=== PATIENT | female | born 1985 | race Caucasian/White ===

== ENCOUNTER 2016-08-21 21:20 | Inpatient (IN) | payer BC ==
[~2016-08-21] VITALS: Ht 162.6 cm; Wt 63.0 kg
[~2016-08-21 21:20] MED LIST: ADDERALL20 MG PO; LAC PO; MAC100 PO; XANAX0.5 MG PO
[2016-08-22 00:35] LABS: PLATELET COUNT 229 x10^3mcL (130-400); RED CELL DISTRIBUTION WIDTH 13.6 % (11.5-14.5)
[2016-08-22 00:36] LABS: BASOPHIL % 0 % (0-2)
[2016-08-22 00:57] LABS: CALCIUM 8.6 mg/dL (8.5-10.1); CARBON DIOXIDE 26.1 mmol/L (21-32); CREATININE SERUM 1.2 mg/dL (0.6-1.0); POTASSIUM SERUM 4.3 mmol/L (3.5-5.1)
[2016-08-22 01:01] LABS: ALBUMIN 3.6 g/dL (3.4-5.0); BILIRUBIN TOTAL 1.3 mg/dL (0.20-1.00); TOTAL PROTEIN, SERUM 7.3 g/dL (6.4-8.2)
[2016-08-22] MEDS ORDERED: XANAX0.5 MG PO (01:32)
[2016-08-22 02:18] LABS: CHOLESTEROL/HDL RATIO 2.8
[2016-08-22 02:23] LABS: T3 TOTAL 0.74 ng/mL
[2016-08-22 02:26] LABS: FREE T4 1.2 ng/dL (0.76-1.46); FREE THYROXINE INDEX 2.9 ug/dL (1.4-4.5)
[2016-08-22 02:50] VITALS: BP 137/92; BP 142/84
[2016-08-22 06:55] LABS: UA SPECIFIC GRAVITY 1.015 (1.005-1.035); microscopic required? YES; urine erythrocyte 3+ (NEGATIVE)
[2016-08-22 07:12] LABS: AMPHETAMINE QUAL UR NONE DETECTED (NEG <=1000)
[2016-08-22 09:40] VITALS: BP 127/92
[2016-08-22 11:54] VITALS: Ht 162.6 cm; Wt 63.0 kg
[2016-08-22 12:58] VITALS: BP 127/78
[2016-08-22 15:40] VITALS: BP 125/57
[2016-08-22 20:36] VITALS: BP 114/66
[2016-08-23 06:43] VITALS: BP 113/73
[2016-08-23 07:18] LABS: CARBON DIOXIDE 25.5 mmol/L (21-32); CHLORIDE SERUM 108 mmol/L (98-107); CREATININE SERUM 0.7 mg/dL (0.6-1.0); GFR1 > 60 mL/min; GLUCOSE SERUM 96 mg/dL (74-106); MAGNESIUM 1.8 mg/dL (1.8-2.4); POTASSIUM SERUM 3.9 mmol/L (3.5-5.1); SODIUM SERUM 140 mmol/L (136-145)
[2016-08-23 07:25] LABS: BASOPHIL % 0.4 % (0-2); PLATELET COUNT 199 x10^3mcL (130-400); RED CELL DISTRIBUTION WIDTH 13.8 % (11.5-14.5)
[2016-08-23 10:36] VITALS: BP 124/84
[2016-08-23 17:44] VITALS: BP 120/82
[2016-08-23 20:48] VITALS: BP 119/83
[2016-08-24 05:18] VITALS: BP 125/87
[2016-08-24 06:01] LABS: BASOPHIL % 0.4 % (0-2); PLATELET COUNT 216 x10^3mcL (130-400)
[2016-08-24 06:19] LABS: CALCIUM 8.3 mg/dL (8.5-10.1); CARBON DIOXIDE 27.7 mmol/L (21-32); CHLORIDE SERUM 107 mmol/L (98-107); CREATININE SERUM 0.7 mg/dL (0.6-1.0); GFR1 > 60 mL/min; GLUCOSE SERUM 93 mg/dL (74-106); SODIUM SERUM 140 mmol/L (136-145)
[2016-08-24 09:45] VITALS: BP 130/86
[2016-08-24] MEDS ORDERED: LAC PO (17:11)
[2016-08-24] MEDS ORDERED: CIPRO250 MG PO (17:11)
[2016-08-24] MEDS ORDERED: MOT800 PO (17:26)
[2016-08-24 17:27] VITALS: BP 136/90
[2016-08-24 17:38] VITALS: BP 136/90
== END 2016-08-24 20:31 | disposition home or self-care (01) | DRG 669 ==
LOC: ED 21:20 → MU 08-22 01:10 → DU 08-22 01:10 → MU 08-22 15:59
PROVIDERS: Emergency Medicine; Urology; ADMIT Family Medicine
PROC: 0T778DZ Dilation of Left Ureter with Intraluminal Device, Via Natural or Artificial Opening Endoscopic (ICD-10-PCS; 2016-08-24)
PROC: 0TC78ZZ Extirpation of Matter from Left Ureter, Via Natural or Artificial Opening Endoscopic (ICD-10-PCS; principal; 2016-08-24 13:30)
DX: N13.2 Hydronephrosis with renal and ureteral calculous obstruction (principal); N17.0 Acute kidney failure with tubular necrosis; F41.9 Anxiety disorder, unspecified; D72.828 Other elevated white blood cell count; R31.9 Hematuria, unspecified; E80.6 Other disorders of bilirubin metabolism; E78.5 Hyperlipidemia, unspecified; D64.9 Anemia, unspecified; Z68.23 Body mass index [BMI] 23.0-23.9, adult
CPT/HCPCS: 80307; 83880; 84439; 94150; C1758; C1769; C2625; J0696; J1170; J2250; J2270; J2405; J3010; J7030; Q0092; Q9967